=== PATIENT | male | born 1970 | race Two or more races ===

== ENCOUNTER 2020-01-05 11:30 | Emergency (ER) | payer OTHER ==
[~2020-01-05] VITALS: Ht 167.6 cm; Wt 80.7 kg
--- NOTE | 2020-01-05 11:59 | NUR ---
Pt states left sided droop and difficulty closing left eye X 2 days. Denies any other SX. No other obvious deficits noted.
--- NOTE | 2020-01-05 12:24 | NUR ---
Pharmacy request form sent for Valtrex
[2020-01-05] MEDS ORDERED: VALACYCLOVIR 500MG TABLET PO ONE (12:30)
--- NOTE | 2020-01-05 13:03 | NUR ---
Pt resting, family at bedside, waiting for med from pharmacy prior to DC.
[2020-01-05 13:04] VITALS: BP 146/86
== END 2020-01-05 13:23 | disposition home or self-care (01) ==
LOC: ED 12:47
DX: G51.0 Bell's palsy (principal); F17.200 Nicotine dependence, unspecified, uncomplicated
CPT/HCPCS: 93005; 99283; J7512